=== PATIENT | female | born 1945 | race Caucasian/White ===

== ENCOUNTER 2022-10-18 06:05 | Emergency (ER) | payer OTHER, MEDICARE ==
[2022-10-18 06:49] LABS: Absolute Lymphocytes (CBC) 1.3 K/uL (0.7-4.9); Hematocrit 38.3 % (36.0-45.0); Lymphocytes % 20.5 % (15.3-44.8); MCV 96.5 fL (80-100); MPV 9.1 fL (7.6-11.3); RBC Red Blood Cell Count 3.97 M/uL (3.86-4.86)
[2022-10-18] MEDS ORDERED: KETOROLAC 30 MG/ML INJ ONE (06:53)
[2022-10-18] MEDS ORDERED: NA CHLORIDE 0.9% 1,000 ML ONE (06:53)
[2022-10-18] MEDS ORDERED: ONDANSETRON 4 MG/2 ML VIAL ONE (06:53)
[2022-10-18] MEDS ORDERED: MORPHINE 4 MG/ML SYR ONE (06:53)
[2022-10-18 07:06] LABS: Albumin 3.4 g/dL (3.4-5.0); Bilirubin Total 0.4 mg/dL (0.2-1.0); Potassium 3.9 mEq/L (3.5-5.1); Protein, Total 7.3 g/dL (6.4-8.2)
--- NOTE | 2022-10-18 07:40 | RAD REPORT ---
EXAM DESCRIPTION: CT - Abdomen Pelvis W Contrast - 10/18/2022 7:25 am CLINICAL HISTORY: Abdominal pain/right pelvis COMPARISON: none. TECHNIQUE: Computed axial tomography of the abdomen pelvis was obtained. 100 cc Isovue-300 was admin istered intravenously. Oral contrast was not requested which limits evaluation of bowel and appendix All CT scans are performed using dose optimization technique as appropriate and may include automated exposure control or mA/KV adjustment according to patient size. FINDINGS: Mild fatty infiltration. Small hepatic cysts. Postsurgical changes involve the stomach. The small pancreatic calcification. Pancreas otherwise normal size and density. Adrenal glands are unremarkable. Bilateral renal cysts. Small umbilical hernia. Probable appendectomy. Fibroid uterus. No inguinal hernia. 5 millimeter right lower lobe subpleural nodule probably benign IMPRESSION: Mild fatty infiltration Fibroid uterus 5 millimeter right lower lobe subpleural nodule probably benign. Follow up CT chest in 1 recommended
--- NOTE | 2022-10-18 07:41 | RAD REPORT ---
[facility] 7:07 am CLINICAL HISTORY: Right leg pain COMPARISON: None. FINDINGS: Right common femoral, superficial femoral, greater saphenous, popliteal and right posterio r tibial veins are compressible and demonstrate augmentation. Doppler demonstrates good flow. Grayscale, color and spectral analysis performed on all vessels IMPRESSION: No evidence of deep venous thrombosis involving the right lower extremity.
--- NOTE | 2022-10-18 07:45 | RAD REPORT ---
EXAM DESCRIPTION: US - Lower Extremity Artery Uni Ltd - 10/18/2022 7:07 am CLINICAL HISTORY: Leg pain COMPARISON: None FINDINGS: The right common femoral, proximal and mid superficial femoral, dorsalis pedis and right posterior ti bial arteries demonstrate triphasic waveforms The distal right superficial femoral and right popliteal arteries demonstrate biphasic waveforms No occlusion/high-grade stenosis seen Grayscale, color and spectral analysis performed on all vessels IMPRESSION: Mild right lower extremity arterial disease
[2022-10-18 08:47] LABS: Transitional Epithelial <5 /HPF (None Seen); Urine Bacteria None Seen /HPF (<20); Urine Bilirubin NEGATIVE (Negative); Urine Blood Negative (Negative); Urine Clarity Clear (Clear); Urine Color Light-Yellow (Yellow); Urine Glucose NEGATIVE (Negative); Urine Mucus Slight /HPF (None Seen); Urine Protein NEGATIVE (Negative); Urine RBC <5 /HPF (None Seen); Urine Urobilinogen Normal (Normal); Urine pH 5.5 (5.0-7.0)
[2022-10-18 08:50] LABS: Specific Gravity > 1.030 (1.005-1.030)
--- NOTE | 2022-10-18 09:06 | ER ---
Nurse's Notes [facility] Name: Radha Cristina Age: 77 yrs Sex: Female : 1945 Arrival Date: 10/18/2022 Time: 06:05 Bed 8 Private MD: Diagnosis: Pain in right leg Presentation: 10/18 06:29 Chief complaint: Patient states: I'm having a pain in my right groin and it is vc1 traveling down my leg. Coronavirus screen: Vaccine status: Patient reports being unvaccinated. At this time, the client does not indicate any symptoms associated with coronavirus-19. Ebola Screen: Patient negative for fever greater than or equal to 101.5 degrees Fahrenheit, and additional compatible Ebola Virus Disease symptoms Patient denies exposure to infectious person. Patient denies travel to an Ebola-affected area in the 21 days before illness onset. No symptoms or risks identified at this time. Initial Sepsis Screen: Does the patient meet any 2 criteria? No. Patient's initial sepsis screen is negative. Does the patient have a suspected source of infection? No. Patient's initial sepsis screen is negative. Risk Assessment: Do you want to hurt yourself or someone else? Patient reports no desire to harm self or others. Onset of symptoms is unknown. 06:29 Method Of Arrival: Ambulatory vc1 06:29 Acuity: SATYA 3 vc1 Triage Assessment: 06:31 General: Appears in no apparent distress. uncomfortable, obese, Behavior is calm, vc1 cooperative, appropriate for age. Pain: Complains of pain in right inner thigh Pain radiates to right leg Pain currently is 8 out of 10 on a pain scale. at worst was 10 out of 10 on a pain scale. Quality of pain is described as sharp. EENT: No deficits noted. No signs and/or symptoms were reported regarding the EENT system. Neuro: Level of Consciousness is awake, alert, obeys commands, Oriented to person, place, time, situation, Appropriate for age. Cardiovascular: No deficits noted. Respiratory: Airway is patent Respiratory effort is even, unlabored, Respiratory pattern is regular, symmetrical. GI: No deficits noted. : No deficits noted. Derm: No deficits noted. Musculoskeletal: Reports pain in right leg. Historical: - Allergies: :31 unknown antibiotic; vc1 - Home Meds: 06:31 None [Active]; vc1 - PMHx: 06:31 None; vc1 - PSHx: 06:31 None; vc1 - Immunization history:: Client reports having NOT received the Covid vaccine. - Social history:: Smoking status: Patient denies any tobacco usage or history of. - Family history:: not pertinent. Screenin:32 [facility] ED Fall Risk Assessment (Adult) History of falling in the last 3 months, vc1 including since admission No falls in past 3 months (0 pts) Confusion or Disorientation No (0 pts) Intoxicated or Sedated No (0 pts) Impaired Gait No (0 pts) Mobility Assist Device Used No (0 pt) Altered Elimination No (0 pt) Score/Fall Risk Level 0 - 2 = Low Risk Oriented to surroundings, Maintained a safe environment, Educated pt \T\ family on fall prevention, incl call for assistance when getting out of bed. Abuse screen: Denies threats or abuse. Nutritional screening: No deficits noted. Tuberculosis screening: No symptoms or risk factors identified. Assessment: 06:53 General: Appears uncomfortable, Behavior is calm, cooperative. Pain: Complains of pain kd3 in right leg and right inner thigh. Neuro: Level of Consciousness is awake, alert, obeys commands, Oriented to person, place, time, situation. Cardiovascular: Patient's skin is warm and dry. Pulses are palpable in right femoral artery, right posterior tibial artery and right dorsalis pedis artery. Vital Signs: 06:29 BP 193 / 92; Pulse 82; Resp 20; Temp 98.8; Pulse Ox 96% ; Weight 120.66 kg; Height 5 vc1 ft. 4 in. ; Pain 8/10; 06:55 BP 180 / 88; Pulse 66; Resp 16; Pulse Ox 95% on R/A; kd3 08:15 BP 162 / 88; Pulse 68; Pulse Ox 96% on R/A; ap3 06:29 Body Mass Index 45.66 (120.66 kg, 162.56 cm) vc1 06:29 Pain Scale: Adult vc1 ED Course: 06:09 Patient arrived in ED. jj6 06:26 Cullen Miller MD is Attending Physician. sp4 06:29 Mary Hilton RN is Primary Nurse. kd3 06:31 Triage completed. vc1 06:32 Arm band placed on right wrist. vc1 06:33 Patient has correct armband on for positive identification. Placed in gown. Bed in low vc1 position. Call light in reach. Pulse ox on. NIBP on. 06:41 Inserted saline lock: 20 gauge in right antecubital area, using aseptic technique. kd3 Blood collected. 06:44 CBC with Diff Sent. kd3 06:44 CMP Sent. kd3 06:44 Lipase Sent. kd3 07:05 Attending Physician role handed off by Cullen Miller MD rt 07:05 Keshawn Auguste MD is Attending Physician. rt 07:09 Extremity Venous Uni Ltd US In Process Unspecified. EDMS 07:09 Lower Extremity Artery Uni Ltd US In Process Unspecified. EDMS 07:27 CT Abd/Pelvis - IV Contrast Only In Process Unspecified. EDMS 09:11 Provided Education on: discharge instructions. ap3 09:11 No provider procedures requiring assistance completed. IV discontinued, intact, ap3 bleeding controlled, No redness/swelling at site. Pressure dressing applied. Administered Medications: 07:06 Drug: NS 0.9% IV 1000 ml Route: IV; Rate: 1 bolus; Site: right antecubital; kd3 09:11 Follow up: IV Status: Completed infusion ap3 07:06 Drug: TORadol - Ketorolac IVP 15 mg Route: IVP; Site: right antecubital; kd3 09:12 Follow up: Response: No adverse reaction; Pain is decreased ap3 07:06 Drug: Ondansetron IVP 4 mg Route: IVP; Site: right antecubital; kd3 09:12 Follow up: Response: No adverse reaction ap3 07:06 Drug: morphine IVP or IV 4 mg Route: IVP; Infused Over: 4 mins; Site: right antecubital;kd3 09:12 Follow up: Response: No adverse reaction; Pain is decreased ap3 Medication: 06:33 VIS not applicable for this client. vc1 Outcome: 09:05 Discharge ordered by . rt 09:11 Discharged to home ambulatory, with family. ap3 09:11 Condition: good 09:11 Discharge instructions given to patient, Instructed on discharge instructions, follow up and referral plans. medication usage, Demonstrated understanding of instructions, follow-up care, medications, Prescriptions given X 1. 09:12 Patient left the ED. ap3 Signatures: Dispatcher [employer] EDEllen Lewis RN RN ap3 Dalia Cardenas jj6 Mary Hilton RN RN kd3 Corrine Khan RN RN vc1 Keshawn Auguste MD MD rt Cullen Miller MD MD sp4 Corrections: (The following items were deleted from the chart) 06:31 06:31 Allergies: No Known Allergies; vc1 vc1
--- NOTE | 2022-10-18 09:06 | EDPHYS ---
Physician Documentation [facility] Name: Radha Cristina Age: 77 yrs Sex: Female : 1945 Arrival Date: 10/18/2022 Time: 06:05 Bed 8 Private MD: ED Physician Keshawn Auguste HPI: 10/18 06:26 This 77 yrs old Female presents to ER via Unassigned with complaints of Leg sp4 Pain. 06:54 Very pleasant 77-year-old female presents with right lower extremity pain that starts sp4 at the right groin and travels down the right leg spreading outward and laterally into the right thigh. Patient states that pain started last night and it was impossible for her to sleep. Pain is actually worse when patient is laying down. Patient is ambulatory on arrival. Denies any pain in the foot, denies any discoloration of the lower extremity, denies any injury or trauma. Historical: - Allergies: 06:31 unknown antibiotic; vc1 - Home Meds: 06:31 None [Active]; vc1 - PMHx: 06:31 None; vc1 - PSHx: 06:31 None; vc1 - Immunization history:: Client reports having NOT received the Covid vaccine. - Social history:: Smoking status: Patient denies any tobacco usage or history of. - Family history:: not pertinent. ROS: 06:54 Constitutional: Negative for fever, chills, and weight loss, MS/Extremity: Negative for sp4 injury and deformity, positive right lower extremity pain, positive for right groin pain positive for right thigh pain. Exam: 06:54 Constitutional: This is a well developed, well nourished patient who is awake, alert, sp4 and in no acute distress. Head/Face: Normocephalic, atraumatic. Eyes: Pupils equal round and reactive to light, extra-ocular motions intact. Lids and lashes normal. Conjunctiva and sclera are not injected. Cornea within normal limits. Periorbital areas with no swelling, redness, or edema. ENT: Nares patent. No nasal discharge, no septal abnormalities noted. Tympanic membranes are normal and external auditory canals are clear. Oropharynx with no redness, swelling, or masses, exudates, or evidence of obstruction, uvula midline. Mucous membranes moist. Neck: Trachea midline, no thyromegaly or masses palpated, and no cervical lymphadenopathy. Supple, full range of motion without nuchal rigidity, or vertebral point tenderness. Chest/axilla: Normal chest wall appearance and motion. Nontender with no deformity. No lesions are appreciated. Cardiovascular: Regular rate and rhythm with a normal S1 and S2. No gallops, murmurs, or rubs. Normal PMI, no JVD. No pulse deficits. Respiratory: Lungs have equal breath sounds bilaterally, clear to auscultation and percussion. No rales, rhonchi or wheezes noted. No increased work of breathing, no retractions or nasal flaring. Abdomen/GI: Soft, non-tender, with normal bowel sounds. No distension or tympany. No guarding or rebound. No evidence of tenderness throughout. Back: No spinal tenderness. No costovertebral tenderness. Female : Right groin exam there is normal arterial pulse, there is no sign of inguinal hernia, no sign of lymphadenopathy, no lumps, no discoloration, no rash. Skin: Warm, dry with normal turgor. Normal color with no rashes, no lesions, and no evidence of cellulitis. MS/ Extremity: Pulses equal, no cyanosis. Neurovascular intact. Full, normal range of motion. Normal gait and station Neuro: Awake and alert, GCS 15, oriented to person, place, time, and situation. Cranial nerves II-XII grossly intact. Motor strength 5/5 in all extremities. Sensory grossly intact. Psych: Awake, alert, with orientation to person, place and time. Behavior, mood, and affect are within normal limits Vital Signs: 06:29 BP 193 / 92; Pulse 82; Resp 20; Temp 98.8; Pulse Ox 96% ; Weight 120.66 kg; Height 5 vc1 ft. 4 in. ; Pain 8/10; 06:55 BP 180 / 88; Pulse 66; Resp 16; Pulse Ox 95% on R/A; kd3 08:15 BP 162 / 88; Pulse 68; Pulse Ox 96% on R/A; ap3 06:29 Body Mass Index 45.66 (120.66 kg, 162.56 cm) vc1 06:29 Pain Scale: Adult vc1 MDM: 06:37 Patient medically screened. sp4 06:54 Differential diagnosis: dislocation, closed fracture, contusion, abrasion, tendonitis. sp4 Data reviewed: vital signs, nurses notes, lab test result(s), radiologic studies, CT scan, doppler. Consideration of Admission/Observation Escalation of care including admission/observation considered. ED course: Patient has unusual groin pain without any significant findings on examination.. We will resort to imaging to rule out arterial abnormalities, such as aneurysms, CT abdomen pelvis will be done to look at the right lower pelvic area to assess for perhaps an aneurysm or other unusual problem that can create pain in the right groin. Will ask daytime provider to follow-up on the CT and ultrasound report and provide further disposition. 07:06 Transition of care: After a detail discussion of the patient's case, care is sp4 transferred to Keshawn Auguste MD. 09:06 ED course: Assumed care at shift change. I discussed at length the results of the rt ultrasound and CT scans with the patient. The pulmonary nodule is already known to the patient has been surveilled for many years and the fibroids are a known issue as well. No evidence of an acute arterial occlusion, DVT. No evidence of infection, labs are benign. Is stable for outpatient care, patient structured to follow-up with primary care.. 10/18 06:36 Order name: CBC with Diff; Complete Time: 07:38 sp4 10/18 06:36 Order name: CMP; Complete Time: 07:38 sp4 10/18 06:36 Order name: Lipase; Complete Time: 07:38 sp4 10/18 06:36 Order name: Urinalysis w/ reflexes; Complete Time: 08:51 sp4 10/18 06:36 Order name: CT Abd/Pelvis - IV Contrast Only; Complete Time: 07:50 sp4 10/18 06:37 Order name: Extremity Venous Uni Ltd US; Complete Time: 07:50 sp4 10/18 06:37 Order name: Lower Extremity Artery Uni Ltd US; Complete Time: 07:50 sp4 10/18 06:36 Order name: IV Saline Lock; Complete Time: 06:41 sp4 10/18 06:36 Order name: Labs collected and sent; Complete Time: 06:41 sp4 Administered Medications: 07:06 Drug: NS 0.9% IV 1000 ml Route: IV; Rate: 1 bolus; Site: right antecubital; kd3 09:11 Follow up: IV Status: Completed infusion ap3 07:06 Drug: TORadol - Ketorolac IVP 15 mg Route: IVP; Site: right antecubital; kd3 09:12 Follow up: Response: No adverse reaction; Pain is decreased ap3 07:06 Drug: Ondansetron IVP 4 mg Route: IVP; Site: right antecubital; kd3 09:12 Follow up: Response: No adverse reaction ap3 07:06 Drug: morphine IVP or IV 4 mg Route: IVP; Infused Over: 4 mins; Site: right antecubital;kd3 09:12 Follow up: Response: No adverse reaction; Pain is decreased ap3 Disposition Summary: 10/18/22 09:05 Discharge Ordered Location: Home rt Problem: new rt Symptoms: are unchanged rt Condition: Stable rt Diagnosis - Pain in right leg rt Followup: rt - With: Private Physician - When: 2 - 3 days - Reason: Discharge Instructions: - Discharge Summary Sheet rt - Musculoskeletal Pain rt Forms: - Medication Reconciliation Form rt - Thank You Letter rt - Antibiotic Education rt - Prescription Opioid Use rt - Patient Portal Instructions rt Prescriptions: - Tramadol 50 mg Oral Tablet - take 1 tablet by ORAL route every 8 hours as needed; 18 tablet; Refills: 0, rt Product Selection Permitted Signatures: Dispatcher [employer] Mary Ramirez RN RN kd3 Corrine Khan RN RN vc1 Keshawn Auguste MD MD rt Cullen Miller MD MD sp4 Ellen Daly RN ap3 Corrections: (The following items were deleted from the chart) 06:31 06:31 Allergies: No Known Allergies; vc1 vc1
[2022-10-18 09:21] VITALS: TEMP 98.8
[2022-10-18 09:37] VITALS: BP 162/88; O2SAT 96
== END 2022-10-18 09:12 | disposition home or self-care (01) ==
LOC: ER 06:05
DX: M79.604 Pain in right leg (principal)
CPT/HCPCS: 96361; 85025; 81001; 36415; 83690; 80053; 74177; 93926; 93971; 96375; 96374; 99284; Q9967; J2405; J7030

== ENCOUNTER 2023-07-22 14:23 | Emergency (ER) | payer OTHER ==
[2023-07-22] MEDS ORDERED: IBUPROFEN 400 MG TAB ONE (15:57)
[2023-07-22] MEDS ORDERED: dexAMETHasone 4 MG TAB ONE (15:57)
[2023-07-22] MEDS ORDERED: HYDROCODONE/APAP 7.5/325 MG TAB ONE (15:57)
--- NOTE | 2023-07-22 16:03 | RAD REPORT ---
EXAM DESCRIPTION: RAD - Hip Left 2 View - 07/22/2023 3:58 pm CLINICAL HISTORY: Pain COMPARISON: No comparisons FINDINGS/IMPRESSION: Left acetabular degenerative changes which are mild. No acute left hip fracture . No dislocation.
--- NOTE | 2023-07-22 16:04 | RAD REPORT ---
EXAM DESCRIPTION: RAD - Knee Left 3 View - 07/22/2023 3:58 pm CLINICAL HISTORY: Pain COMPARISON: No comparisons FINDINGS/IMPRESSION: Status post left knee arthroplasty. No hardware complications or acute fracture s. Alignment is normal. No acute soft tissue abnormality identified.
--- NOTE | 2023-07-22 16:23 | RAD REPORT ---
EXAM DESCRIPTION: US - Extremity Venous Uni Ltd - 07/22/2023 4:18 pm CLINICAL HISTORY: Swelling COMPARISON: None. TECHNIQUE: Real-time sonographic evaluation of the left lower extremity deep venous system was perfo rmed. FINDINGS: Normal compressibility, flow augmentation, phasic flow and spontaneous flow is identified in the left lower extremity deep venous system. No intraluminal filling defects seen. IMPRESSION: No DVT in the left lower extremity.
--- NOTE | 2023-07-22 17:59 | RAD REPORT ---
EXAM DESCRIPTION: US - Lower Extremity Artery Uni Ltd - 07/22/2023 5:48 pm CLINICAL HISTORY: Neck pain COMPARISON: Ultrasound 10/18/2022 FINDINGS: Color Doppler, grayscale, and spectral analysis was performed. The left common femoral, superficial femoral and popliteal arteries bilaterally demonstrate triphasic waveforms The posterior tibial and dorsalis pedis arteries demonstrate biphasic waveforms. IMPRESSION: No flow limiting arterial stenosis identified in the left lower extremity. Multiphasic w aveforms are present throughout.
--- NOTE | 2023-07-22 18:06 | ER ---
Nurse's Notes [facility] Name: Radha Cristina Age: 78 yrs Sex: Female : 1945 Arrival Date: 07/22/2023 Time: 14:23 Bed 19 Private MD: Diagnosis: Pain in left leg Presentation: 07/21 14:39 Chief complaint: Patient states: left leg pain and left hip pain "for a few weeks". aa5 14:39 Coronavirus screen: At this time, the client does not indicate any symptoms associated aa5 with coronavirus-19. Ebola Screen: Patient denies travel to an Ebola-affected area in the 21 days before illness onset. Initial Sepsis Screen: Does the patient meet any 2 criteria? No. Patient's initial sepsis screen is negative. Does the patient have a suspected source of infection? No. Patient's initial sepsis screen is negative. Risk Assessment: Do you want to hurt yourself or someone else? Patient reports no desire to harm self or others. Onset of symptoms was June 2023. 14:39 Acuity: SATYA 3 aa5 14:39 Method Of Arrival: Ambulatory aa5 Historical: - Allergies: 14:57 Diltiazem; aa5 14:57 Benadryl; aa5 14:57 Lisinopril; aa5 18:17 unknown antibiotic; db - Immunization history:: Adult Immunizations unknown. - Infectious Disease History:: Denies. - Social history:: Smoking status: Patient denies any tobacco usage or history of. Screenin:02 [facility] ED Fall Risk Assessment (Adult) History of falling in the last 3 months, db including since admission No falls in past 3 months (0 pts) Confusion or Disorientation No (0 pts) Intoxicated or Sedated No (0 pts) Impaired Gait No (0 pts) Mobility Assist Device Used No (0 pt) Altered Elimination No (0 pt) Score/Fall Risk Level 0 - 2 = Low Risk Oriented to surroundings, Maintained a safe environment. Abuse screen: Denies threats or abuse. Denies injuries from another. Nutritional screening: No deficits noted. Tuberculosis screening: No symptoms or risk factors identified. Assessment: 15:45 Reassessment: Patient appears in no apparent distress at this time. Patient and/or db family updated on plan of care and expected duration. Pain level reassessed. Patient is alert, oriented x 3, equal unlabored respirations, skin warm/dry/pink. LEFT LEG PAIN RADIATES UP INTO HIP AND BACK OF CALF. General: Appears in no apparent distress. comfortable, Behavior is calm, cooperative. Pain: Complains of pain in left leg. Neuro: Level of Consciousness is awake, alert, obeys commands, Oriented to person, place, time, situation. Respiratory: Airway is patent Respiratory effort is even, unlabored, Respiratory pattern is regular, symmetrical. 16:01 Reassessment: ULTRASOUND AT PT BEDSIDE. db 16:27 Reassessment: Patient appears in no apparent distress at this time. Patient and/or db family updated on plan of care and expected duration. Pain level reassessed. Patient is alert, oriented x 3, equal unlabored respirations, skin warm/dry/pink. 18:15 Reassessment: Patient appears in no apparent distress at this time. Patient and/or db family updated on plan of care and expected duration. Pain level reassessed. Patient is alert, oriented x 3, equal unlabored respirations, skin warm/dry/pink. Vital Signs: 14:39 BP 160 / 106; Pulse 69; Resp 16 S; Temp 97.5(TE); Pulse Ox 96% on R/A; Weight 113.4 kg aa5 (R); Height 5 ft. 4 in. (R); 15:32 BP 153 / 90; Pulse 76; Resp 18; Pulse Ox 96% ; db 16:00 BP 144 / 60; Pulse 67; Resp 18; Pulse Ox 96% on R/A; db 18:05 BP 143 / 82; Pulse 72; Resp 16; Temp 97.6; Pulse Ox 99% ; db 14:39 Body Mass Index 42.91 (113.40 kg, 162.56 cm) aa5 ED Course: 14:25 Patient arrived in ED. mr 14:27 Gordo Woodard PA is PHCP. cp 14:27 Herrera Foster MD is Attending Physician. cp 14:39 Arm band placed on Patient placed in an exam room, on a stretcher. aa5 14:58 Lavern Wilson, EMILY is Primary Nurse. db 14:59 Triage completed. aa5 15:48 Patient has correct armband on for positive identification. Placed in gown. Bed in low db position. Call light in reach. Side rails up X 1. Pulse ox on. NIBP on. Warm blanket given. Pillow given. 16:00 Hip Left 2 View In Process Unspecified. EDMS 16:00 Knee Left 3 View In Process Unspecified. EDMS 16:19 Extremity Venous Uni Ltd In Process Unspecified. EDMS 17:50 Lower Extremity Artery Uni Ltd In Process Unspecified. EDMS 18:15 Provided Education on: DISCHARGE. db 18:15 No provider procedures requiring assistance completed. Patient did not have IV access db during this emergency room visit. Administered Medications: 15:58 Drug: Hydrocodone-Acetaminophen PO (7.5 mg-325 mg) 1 tabs PO once; RASS on ADMIN: db Combtv4, Very Agttd3, Agttd2, Rstlss1, AlertClm0, Drwsy-1, Lt Sdtn-2, Mod Sdtn-3, Dp Sdtn-4, UnArsble-5 Route: PO; 18:18 Follow up: Response: No adverse reaction db 15:58 Drug: Ibuprofen PO 800 mg PO once Route: PO; db 18:18 Follow up: Response: No adverse reaction db 15:58 Drug: Dexamethasone PO 10 mg PO once Route: PO; db 18:18 Follow up: Response: No adverse reaction db Medication: 18:15 VIS not applicable for this client. db Outcome: 18:05 Discharge ordered by . mckenzie 18:15 Discharged to home ambulatory, with family, db 18:15 Condition: stable 18:15 Discharge instructions given to patient, Instructed on discharge instructions, follow up and referral plans. Prescriptions given X 3, 18:18 Patient left the ED. db Signatures: Dispatcher [employer] EDNC MajanoLisha cardoza, Reg Reg mr Kalani Hinojosa, RN RN aa5 Gordo Woodard PA PA cp Benton, Danielle, RN RN db
--- NOTE | 2023-07-22 18:06 | EDPHYS ---
Physician Documentation [facility] Name: Radha Cristina Age: 78 yrs Sex: Female : 1945 Arrival Date: 07/22/2023 Time: 14:23 Bed 19 Private MD: ED Physician Herrera Foster HPI: 07/21 15:00 This 78 yrs old Female presents to ER via Ambulatory with complaints of Leg Pain. cp 15:00 The patient presents with pain. cp 15:00 The complaints affect the left leg. Context: resulted from an unknown cause, the cp patient can fully bear weight, the patient is able to ambulate, with mild difficulty, history of left knee replacement surgery. Onset: The symptoms/episode began/occurred for several weeks, worse over past several days. Modifying factors: the symptoms are aggravated by weight bearing. 15:00 Associated signs and symptoms: Pertinent positives: calf tenderness, Pertinent cp negatives fever, warmth, injury. Severity of symptoms: in the emergency department the symptoms are unchanged, despite home interventions. Historical: - Allergies: 14:57 Diltiazem; aa5 14:57 Benadryl; aa5 14:57 Lisinopril; aa5 18:17 unknown antibiotic; db - Immunization history:: Adult Immunizations unknown. - Infectious Disease History:: Denies. - Social history:: Smoking status: Patient denies any tobacco usage or history of. ROS: 15:05 MS/extremity: Positive for pain, of the left leg, Negative for injury or acute cp deformity, decreased range of motion, 15:05 Constitutional: Negative for body aches, chills, fever, poor PO intake, cp 15:05 Cardiovascular: Negative for chest pain, edema, palpitations, 15:05 Respiratory: Negative for cough, shortness of breath, wheezing, 15:05 Abdomen/GI: Negative for abdominal pain, nausea, vomiting, and diarrhea, 15:05 Back: Negative for injury or acute deformity, decreased range of motion, pain at rest, pain with movement, 15:05 : Negative for urinary symptoms, hematuria, flank pain, burning with urination, 15:05 Neuro: Negative for altered mental status, dizziness, numbness, tingling, weakness, 15:05 All other systems are negative, Exam: 15:10 Constitutional: The patient appears in no acute distress, alert, awake, cp non-diaphoretic, non-toxic, well developed, well nourished, obese, 15:10 Head/Face: Normocephalic, atraumatic. cp 15:10 Eyes: Periorbital structures: appear normal, Conjunctiva: normal, no exudate, no injection, Sclera: no appreciated abnormality, Lids and lashes: appear normal, bilaterally, 15:10 ENT: External ear(s): are unremarkable, Nose: is normal, Mouth: Lips: moist, Oral mucosa: pink and intact, moist, Posterior pharynx: is normal, airway is patent, no erythema, no exudate, 15:10 Chest/axilla: Inspection: normal, 15:10 Cardiovascular: Rate: normal, Rhythm: regular, 15:10 Respiratory: the patient does not display signs of respiratory distress, Respirations: normal, no use of accessory muscles, no retractions, labored breathing, is not present, Breath sounds: are clear throughout, no decreased breath sounds, no stridor, no wheezing, 15:10 Abdomen/GI: Inspection: abdomen appears normal, Palpation: abdomen is soft and non-tender, in all quadrants, 15:10 Back: pain, is absent, ROM is normal, 15:10 Musculoskeletal/extremity: Extremities: noted in the left leg: ROM: full active range of motion, in the left leg, Pulses: noted to be 2+ in the left dorsalis pedis artery, the left leg Sensation intact. Joints: the left hip displays painful range of motion, tenderness, the left knee displays painful range of motion, tenderness, Weight bearing: able to fully bear weight, 15:10 Skin: cellulitis, is not appreciated, no rash present. Vital Signs: 14:39 BP 160 / 106; Pulse 69; Resp 16 S; Temp 97.5(TE); Pulse Ox 96% on R/A; Weight 113.4 kg aa5 (R); Height 5 ft. 4 in. (R); 15:32 BP 153 / 90; Pulse 76; Resp 18; Pulse Ox 96% ; db 16:00 BP 144 / 60; Pulse 67; Resp 18; Pulse Ox 96% on R/A; db 18:05 BP 143 / 82; Pulse 72; Resp 16; Temp 97.6; Pulse Ox 99% ; db 14:39 Body Mass Index 42.91 (113.40 kg, 162.56 cm) aa5 MDM: 14:42 Patient medically screened. cp 16:00 Differential diagnosis: DVT, cellulitis, musculoskeletal. cp 18:05 Data reviewed: vital signs, nurses notes, radiologic studies, plain films, ultrasound, cp and as a result, I will discharge patient. 07/21 15:43 Order name: Hip Left 2 View EDAR 07/21 15:43 Order name: Knee Left 3 View EDAR 07/21 15:44 Order name: Extremity Venous Uni Ltd EDAR 07/21 16:03 Order name: RAD; Complete Time: 17:22 EDMS 07/21 16:04 Order name: RAD; Complete Time: 17:22 EDMS 07/21 16:25 Order name: US; Complete Time: 17:22 EDMS 07/21 17:34 Order name: Lower Extremity Artery Uni Ltd EDAR 07/21 18:00 Order name: US EDAR 07/21 14:42 Order name: Misc. Order: change to gown; Complete Time: 15:47 cp Administered Medications: 15:58 Drug: Hydrocodone-Acetaminophen PO (7.5 mg-325 mg) 1 tabs PO once; RASS on ADMIN: db Combtv4, Very Agttd3, Agttd2, Rstlss1, AlertClm0, Drwsy-1, Lt Sdtn-2, Mod Sdtn-3, Dp Sdtn-4, UnArsble-5 Route: PO; 18:18 Follow up: Response: No adverse reaction db 15:58 Drug: Ibuprofen PO 800 mg PO once Route: PO; db 18:18 Follow up: Response: No adverse reaction db 15:58 Drug: Dexamethasone PO 10 mg PO once Route: PO; db 18:18 Follow up: Response: No adverse reaction db Disposition Summary: 07/22/23 18:05 Discharge Ordered Notes: Location: Home cp Problem: new cp Symptoms: have improved cp Condition: Stable cp Diagnosis - Pain in left leg cp Followup: cp - With: Private Physician - When: 2 - 3 days - Reason: Recheck today's complaints Discharge Instructions: - Discharge Summary Sheet cp - Musculoskeletal Pain cp - How to Use Cold Therapy cp - Heat Therapy cp Forms: - Medication Reconciliation Form cp - Antibiotic Education cp - Prescription Opioid Use cp - Patient Portal Instructions cp - Leadership Thank You Letter cp Prescriptions: - Mobic 7.5 mg Oral Tablet - take 1 tablet ORAL route once daily take with food; 20 tablet; Refills: 0, cp Product Selection Permitted - Medrol (Dangelo) 4 mg Oral Tablets, Dose Pack - take 1 tablet ORAL route as directed - follow package instructions; 1 packet; cp Refills: 0, Product Selection Permitted - methocarbamol 750 mg Oral tablet - take 1 tablet ORAL route 3 times per day; 30 tablet; Refills: 0, Product cp Selection Permitted Signatures: Dispatcher [employer] Kalani Jamison, RN RN aa5 Gordo Woodard PA PA cp Lavern Wilson RN RN db Corrections: (The following items were deleted from the chart) 07/22 17:29 17:26 MS/extremity: Positive for pain, of the left leg, cp cp
[2023-07-23 14:52] VITALS: BP 143/82; TEMP 97.6; O2SAT 99
== END 2023-07-22 18:18 | disposition home or self-care (01) ==
LOC: ER 14:23
DX: M79.605 Pain in left leg (principal); Z88.1 Allergy status to other antibiotic agents; Z88.8 Allergy status to other drugs, medicaments and biological substances
CPT/HCPCS: 73502; 73562; 93926; 93971; 99284; J8540

== ENCOUNTER 2024-12-19 14:43 | Observation (INO) | payer OTHER ==
--- NOTE | 2024-12-19 15:09 | RAD REPORT ---
EXAM: CT Ct Stroke Brain Wo Cont HISTORY: STROKE ALERT COMPARISON: None TECHNIQUE: Multiple contiguous axial images were obtained for a CT of the brain without contrast. Sag ittal and coronal reformats were performed. One or more of the following dose reduction techniques were used: Automated exposure control, adjus tment of the mA and kV according to patient size, and iterative reconstruction. Unless otherwise specified, incidental findings do not require dedicated imaging follow-up. FINDINGS: No evidence of hydrocephalus, intracranial hemorrhage, or extra-axial fluid collection. Patchy hypoattenuation in the right centrum semiovale anteriorly. These are nonspecific and could re late to chronic small vessel ischemic changes.. No evidence of an acute territorial infarct. The calvarium is intact. The visualized paranasal sinuses and mastoid air cells are essentially clear . IMPRESSION: No evidence of acute intracranial abnormality. Chronic findings as above. If there is concern for acu te ischemia, additional evaluation by stroke protocol MRI would provide improved assessment. THIS REPORT CONTAINS FINDINGS THAT MAY BE CRITICAL TO PATIENT CARE. The findings were verbally commun icated via telephone to Gavin Benton on 12/19/2024 3:06 PM.
[2024-12-19 15:25] LABS: Absolute Lymphocytes (CBC) 1.5 K/uL (0.7-4.9); Hematocrit 42.7 % (36.0-45.0); Hemoglobin 14.0 g/dL (12.0-15.0); MCH 31.4 pg (27.0-35.0); MCHC 32.8 g/dL (32.0-36.0); MCV 95.5 fL (80-100); MPV 9.2 fL (7.6-11.3); Nucleated RBC Absolute Count 0.0 (0-0); Nucleated Red Blood Cells % 0.0 % (0-0); RBC Red Blood Cell Count 4.48 M/uL (3.86-4.86); White Blood Count 6.30 thou/uL (4.3-10.9)
[2024-12-19 15:34] LABS: PT Prothrombin Time 14.7 SECONDS (10-13.0); PTT, Activated Partial Thromb 33.3 SECONDS (27.2-37.4); Protime INR 1.31
[2024-12-19 15:44] LABS: Anion Gap 7.2 mEq/L (5.0-15.0); BUN Blood Urea Nitrogen 19.0 mg/dL (7-18); Glucose Level 134.0 mg/dL (74-106); Potassium 4.2 mEq/L (3.5-5.1); Troponin High Sensitivity 4.5 pg/mL (<58.9)
--- NOTE | 2024-12-19 16:07 | RAD REPORT ---
EXAMINATION: CTA HEAD CLINICAL INDICATION: Female, 79 years old. left facial and left hand numbnes TECHNIQUE: Axial CT images were obtained through the head after intravenous contrast utilizing angiog raphic protocol with 3D post-processing (maximum intensity projection images, volume rendered images and/or shaded surface rendered images). One or more of the following dose reduction technique s were used: Automated exposure control, adjustment of the mA and/or kV according to patient size, and/or iterative reconstruction. Unless otherwise specified, incidental findings do not require dedic ated imaging follow-up. COMPARISON: No prior exam. FINDINGS: ICA: The petrous, cavernous, and supraclinoid segments of the bilateral internal carotid arteries are normal. HOWARD: Anterior cerebral arteries are normal bilaterally. The anterior communicating artery is patent. MCA: Middle cerebral arteries are normal bilaterally. ADOPTION SOCIAL WORKER: Posterior cerebral arteries are normal bilaterally. Vertebrobasilar: The vertebral arteries are patent. The basilar artery is normal in appearance. 3D images confirm these findings. IMPRESSION: No large vessel occlusion or hemodynamically significant stenosis.
--- NOTE | 2024-12-19 16:13 | RAD REPORT ---
EXAMINATION: CT Neck Angio CLINICAL INDICATION: Female, 79 years old. [facility] left facial and left hand numbnes Bed Name: [id number] TECHNIQUE: Axial CT images were obtained from the aortic arch to the skull base after intravenous con trast utilizing angiographic protocol. Multiplanar reformats, as well as 3D post-processing (maximum intensity projection images, volume rendered images and/or shaded surface rendered images) w ere generated and reviewed. One or more of the following dose reduction techniques were used: Automated exposure control, adjustment of the mA and/or kV according to patient size, and/or iterativ e reconstruction. Unless otherwise specified, incidental findings do not require dedicated imaging follow-up. COMPARISON: No prior exam. FINDINGS: AORTA: The imaged aortic arch is normal. Normal three-vessel configuration of the arch. CCA: No artifact The common carotid arteries are patent and normal in caliber. ICA/ECA: Bilateral internal and external carotid arteries are patent. There is no significant interna l carotid artery stenosis. VERTEBRAL: The cervical vertebral arteries are patent to the skull base. Vertebral arteries are codom inant. SOFT TISSUE: No significant neck soft tissue abnormalities. The visualized lung apices are clear. 3D images confirm these findings. IMPRESSION: No significant flow abnormality of the neck vessels is identified. NASCET criteria used to quantify ICA stenosis, with the following grading scheme: Mild 0-49% stenosis Moderate 50-69% stenosis Severe 70-99% stenosis Reference: [place] Symptomatic Carotid Endarterectomy Trial Collaborators; Maritza MAGANA, Amanda CUMMINGS, Nadya RB, et al. Beneficial effect of carotid endarterectomy in symptomatic patients with high-grade carotid stenosis. N Engl J Med. 1990 15;325(7):445-53.
--- NOTE | 2024-12-19 16:14 | RAD REPORT ---
EXAMINATION: ONE VIEW CHEST XR CLINICAL INDICATION: Female, 79 years old.,stroke aler TECHNIQUE: Frontal chest projection is submitted. Examination is limited by patient positioning and t echnique. COMPARISON: 10/15/2024 FINDINGS: The lungs are grossly clear apart from mild central congestive changes, stable, although suboptimal i nspiratory effort somewhat limits evaluation. No pneumothorax or sizable effusion. The heart is normal in size. Mediastinal contours are unremarkable. IMPRESSION: Stable mild central congestive changes. No other acute intrathoracic abnormalities.
--- NOTE | 2024-12-19 16:31 | EDPHYS ---
Physician Documentation [facility] Name: Radha Cristina Age: 79 yrs Sex: Female : 1945 Arrival Date: 12/19/2024 Time: 14:43 Bed 14 Private MD: ED Physician Gavin Benton HPI: 12/19 14:55 This 79 yrs old Female presents to ER via Ambulatory with complaints of left facial and ms3 left hand numbness. 14:55 79-year-old female with past medical history of hypertension, atrial fibrillation, ms3 hyperlipidemia, SVT presents to the emergency department for left mouth numbness, and left hand numbness. Patient states symptoms began 40 minutes prior to arrival. Patient states symptoms have resolved on arrival to the emergency department. Patient notes on December 12 she was having difficulty talking with a thick tongue. 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 Historical: - Allergies: 14:51 Benadryl; unable to urinate; dd2 14:51 Diltiazem; dd2 14:51 Lisinopril; dd2 14:51 unknown antibiotic; dd2 - PMHx: 14:51 Atrial fibrillation; Hypercholesterolemia; SVT; dd2 14:52 Hypertensive disorder; dd2 - PSHx: 14:53 Appendectomy; dd2 - Immunization history:: Adult Immunizations up to date. - Infectious Disease History:: Denies. - Social history:: Smoking status: Patient denies any tobacco usage or history of. ROS: 14:55 Constitutional: Negative for fever, and chills. Cardiovascular: Negative for chest ms3 pain, and palpitations. Respiratory: Negative for shortness of breath, cough, wheezing, and pleuritic chest pain, Abdomen/GI: Negative for abdominal pain, nausea, vomiting, diarrhea, and constipation, MS/Extremity: Negative for injury and deformity, Skin: Negative for injury, rash, and discoloration, 14:55 Neuro: Positive for numbness, Exam: 14:55 Constitutional: This is a well developed, well nourished patient who is awake, alert, ms3 and in no acute distress. Neck: Trachea midline, no cervical lymphadenopathy. Supple, full range of motion without nuchal rigidity, or vertebral point tenderness. No Meningismus. Chest/axilla: Normal chest wall appearance and motion. Nontender with no deformity. Cardiovascular: Regular rate and rhythm with a normal S1 and S2. No gallops, murmurs, or rubs. Normal PMI, no JVD. No pulse deficits. Respiratory: Lungs have equal breath sounds bilaterally, clear to auscultation and percussion. No rales, rhonchi or wheezes noted. No increased work of breathing, no retractions or nasal flaring. Abdomen/GI: Soft, non-tender, with normal bowel sounds. No distension or tympany. No guarding or rebound. No evidence of tenderness throughout. Skin: Warm, dry with normal turgor. Normal color with no rashes, no lesions, and no evidence of cellulitis. MS/ Extremity: Pulses equal, no cyanosis. Neurovascular intact. Full, normal range of motion. 15:38 ECG was reviewed by the Attending Physician. ms3 17:03 Radiologist reports: Negative acute ms3 Vital Signs: 15:10 BP 161 / 84; Pulse 55; Resp 18; Temp 98; Pulse Ox 100% ; Weight 117.93 kg (M); Height 5 mb9 ft. 4 in. ; Pain 0/10; 15:40 BP 166 / 73; Pulse 55; Resp 18; Pulse Ox 100% ; mb9 16:10 BP 171 / 71; Pulse 54; Resp 18; Pulse Ox 100% on R/A; mb9 17:40 BP 173 / 84; Pulse 54; Resp 18; Pulse Ox 98% on R/A; mb9 19:01 BP 155 / 99; Pulse 52; Resp 18; Pulse Ox 100% on R/A; mb9 15:10 Body Mass Index 44.63 (117.93 kg, 162.56 cm) mb9 15:10 Pain Scale: Adult mb9 NIH Stroke Scale Scores: 14:55 NIHSS Score: 0 ms3 15:10 NIHSS Score: 0 mb9 MDM: 14:53 Medical Screening Exam initiated ms3 17:00 Differential diagnosis: CVA, TIA, metabolic disorder. TNKase (Tenecteplase) Screening: ms3 Contraindications: Rapidly improving condition or minor deficit: Yes. Data reviewed: vital signs, nurses notes, lab test result(s), EKG, radiologic studies, and as a result, I will admit patient. Consideration of Admission/Observation Patient was admitted/placed on observation. Management of patient was discussed with the following: Hospitalist: Sonny on behalf of Dr Michel. Independent interpretation of the following test(s) in the Emergency Department EKG: See my EKG interpretation above CT Scan: My interpretation is CT head without IV contrast images reviewed by me do not reveal intracranial hemorrhage. Counseling: I had a detailed discussion with the patient and/or guardian regarding the historical points, exam findings, and any diagnostic results supporting the discharge/admit diagnosis, lab results, radiology results, the need for further work-up and treatment in the hospital. ED course: Discussed necessity for admission with patient's multiple episodes of left hand numbness. Patient stated she also had period of difficulty speaking.. 12/19 14:54 Order name: Basic Metabolic Panel; Complete Time: 15:50 ms3 12/19 14:54 Order name: CBC with Diff; Complete Time: 15:37 ms3 12/19 14:54 Order name: High Sensitivity Troponin; Complete Time: 15:50 ms3 12/19 14:54 Order name: Protime (+inr); Complete Time: 15:37 ms3 12/19 14:54 Order name: Ptt, Activated; Complete Time: 15:37 ms3 12/19 15:16 Order name: Glucose, Ancillary Testing; Complete Time: 15:37 EDMS 12/19 15:22 Order name: CREATININE WHOLE BLOOD; Complete Time: 15:37 EDMS 12/19 17:10 Order name: Basic Metabolic Panel EDMS 12/19 17:10 Order name: Basic Metabolic Panel EDMS 12/19 17:10 Order name: CBC with Automated Diff EDMS 12/19 17:10 Order name: CBC with Automated Diff EDMS 12/19 17:10 Order name: Lipid Profile EDMS 12/19 17:10 Order name: Lipid Profile EDMS 12/19 17:10 Order name: Thyroid Stimulating Hormone EDMS 12/19 17:11 Order name: Thyroid Stimulating Hormone EDMS 12/19 14:54 Order name: CT Head Angio; Complete Time: 16:27 ms3 12/19 14:54 Order name: CT Neck Angio; Complete Time: 16:27 ms3 12/19 14:54 Order name: CT Stroke Brain w/o Contrast; Complete Time: 15:10 ms3 12/19 14:54 Order name: Stroke CXR 1 View; Complete Time: 16:27 ms3 12/19 16:34 Order name: Brain Wo Cont EDMS 12/19 14:54 Order name: EKG; Complete Time: 14:55 ms3 12/19 17:10 Order name: Physical Therapy Consult EDMS 12/19 14:54 Order name: Accucheck; Complete Time: 15:14 ms3 12/19 14:54 Order name: Cardiac monitoring; Complete Time: 15:23 ms3 12/19 14:54 Order name: EKG - Nurse/Tech; Complete Time: 15:23 ms3 12/19 14:54 Order name: IV Saline Lock; Complete Time: 15:14 ms3 12/19 14:54 Order name: Labs collected and sent; Complete Time: 15:14 ms3 12/19 14:54 Order name: NPO; Complete Time: 15:27 ms3 12/19 14:54 Order name: O2 Per Protocol; Complete Time: 15:27 ms3 12/19 14:54 Order name: O2 Sat Monitoring; Complete Time: 15:27 ms3 12/19 14:54 Order name: Stroke Swallow Screen; Complete Time: 15:27 ms3 EC:38 Rate is 62 beats/min. Rhythm is regular. QRS [place] is Normal. [place] interval is normal. QRS ms3 interval is normal. Clinical impression: NSR w/ Non-specific ST/T Changes. Interpreted by me. Reviewed by me. Administered Medications: No medications were administered Point of Care Testing: Blood Glucose: 15:14 Blood Glucose: 127 mg/dL; dd2 Ranges: Critical Glucose Levels:Adult <50 mg/dl or >400 mg/dl <40 mg/dl or >180 mg/dl Disposition Summary: 12/19/24 16:30 Hospitalization Ordered Notes: Hospitalization Status: Observation ms3 Provider: Shyanne Michel ms3 Location: Telemetry/MedSurg (observation) ms3 Condition: Stable ms3 Problem: new ms3 Symptoms: are unchanged ms3 Bed/Room Type: Standard ms3 Room Assignment: 225(12/19/24 18:37) ss Diagnosis - Transient cerebral ischemic attack, unspecified ms3 - Left facial numbness ms3 - Left hand numbness ms3 Forms: - Medication Reconciliation Form ms3 - SBAR form ms3 - Leadership Thank You Letter ms3 NIH Stroke Scale - NIH Stroke Score Date: 12/19/2024 Time: 14:55 Total Score = 0 10. Dysarthria (speech clarity - read or repeat words) - 0(Normal) 11. Extinction and Inattention (visual/tactile/auditory/spatial/personal) - 0(No abnormality) 1a. Level of Consciousness (LOC) - 0(Alert) 1b. Level of Consciousness (LOC) (Month \T\ Age) - 0(Both) 1c. LOC Commands (Open \T\ Closes Eyes/Welt Beater) - 0(Both) 2. Best Gaze (Lateral Gaze Paresis) - 0(Normal) 3. Visual Field Loss - 0(No visual loss) 4. Facial Palsy - 0(Normal) 5a. Left Arm: Motor (10-second hold) - 0(No drift) 5b. Right Arm: Motor (10-second hold) - 0(No drift) 6a. Left Leg: Motor (5-second hold - always test supine) - 0(No drift) 6b. Right Leg: Motor (5-second hold - always test supine) - 0(No drift) 7. Limb Ataxia (finger/nose \T\ heel/collado - test with eyes open) - 0(Absent) 8. Sensory Loss (pinprick arms/legs/face) - 0(Normal) 9. Best Language: Aphasia (description/naming/reading) - 0(No aphasia) Initials: ms3 NIH Stroke Scale - NIH Stroke Score Date: 12/19/2024 Time: 15:10 Total Score = 0 10. Dysarthria (speech clarity - read or repeat words) - 0(Normal) 11. Extinction and Inattention (visual/tactile/auditory/spatial/personal) - 0(No abnormality) 1a. Level of Consciousness (LOC) - 0(Alert) 1b. Level of Consciousness (LOC) (Month \T\ Age) - 0(Both) 1c. LOC Commands (Open \T\ Closes Eyes/Welt Beater) - 0(Both) 2. Best Gaze (Lateral Gaze Paresis) - 0(Normal) 3. Visual Field Loss - 0(No visual loss) 4. Facial Palsy - 0(Normal) 5a. Left Arm: Motor (10-second hold) - 0(No drift) 5b. Right Arm: Motor (10-second hold) - 0(No drift) 6a. Left Leg: Motor (5-second hold - always test supine) - 0(No drift) 6b. Right Leg: Motor (5-second hold - always test supine) - 0(No drift) 7. Limb Ataxia (finger/nose \T\ heel/collado - test with eyes open) - 0(Absent) 8. Sensory Loss (pinprick arms/legs/face) - 0(Normal) 9. Best Language: Aphasia (description/naming/reading) - 0(No aphasia) Initials: jordin Signatures: Dispatcher [employer] EDMS Carmen Greer, RN RN ss Gavin Benton, DO ms3 Lisha Li RN RN mb9 RAO JENSEN RN RN dd2 Corrections: (The following items were deleted from the chart) 14:53 14:51 PSHx: None; dd2 dd2 17:13 17:11 Chest Pa And Lat (2 Views) ordered. EDMS EDMS 18:33 16:30 ms3 ss 18:37 18:33 221 ss ss
--- NOTE | 2024-12-19 16:31 | ER ---
Nurse's Notes [facility] Name: Radha Cristina Age: 79 yrs Sex: Female : 1945 Arrival Date: 12/19/2024 Time: 14:43 Bed 14 Private MD: Diagnosis: Transient cerebral ischemic attack, unspecified;Left facial numbness;Left hand numbness Presentation: 12/19 14:49 Chief complaint: Patient states: left mouth numbness and lt hand numb approx 30 mins dd2 ago but resolved. pt reports unable to speak, thick tongue on 12/12 and lt hand numb on 12/16. Coronavirus screen: At this time, the client does not indicate any symptoms associated with coronavirus-19. Ebola Screen: No symptoms or risks identified at this time. Risk Assessment: Do you want to hurt yourself or someone else? Patient reports no desire to harm self or others. Onset of symptoms was December 19, 2024 at 14:10. 14:49 Method Of Arrival: Ambulatory dd2 14:49 Acuity: SATYA 3 dd2 15:12 Initial Sepsis Screen: Does the patient meet any 2 criteria? No. Patient's initial mb9 sepsis screen is negative. Does the patient have a suspected source of infection? No. Patient's initial sepsis screen is negative. Triage Assessment: 15:14 General: Appears in no apparent distress. uncomfortable, Behavior is calm, cooperative, dd2 appropriate for age. Pain: Denies pain. Neuro: Reports numbness in left hand and mouth. Historical: - Allergies: 14:51 Benadryl; unable to urinate; dd2 14:51 Diltiazem; dd2 14:51 Lisinopril; dd2 14:51 unknown antibiotic; dd2 - PMHx: 14:51 Atrial fibrillation; Hypercholesterolemia; SVT; dd2 14:52 Hypertensive disorder; dd2 - PSHx: 14:53 Appendectomy; dd2 - Immunization history:: Adult Immunizations up to date. - Infectious Disease History:: Denies. - Social history:: Smoking status: Patient denies any tobacco usage or history of. Screenin:11 [facility] ED Fall Risk Assessment (Adult) History of falling in the last 3 months, mb9 including since admission No falls in past 3 months (0 pts) Confusion or Disorientation No (0 pts) Intoxicated or Sedated No (0 pts) Impaired Gait No (0 pts) Mobility Assist Device Used No (0 pt) Altered Elimination No (0 pt) Score/Fall Risk Level 0 - 2 = Low Risk Oriented to surroundings, Maintained a safe environment, Educated pt \T\ family on fall prevention, incl call for assistance when getting out of bed. Abuse screen: Denies threats or abuse. Nutritional screening: No deficits noted. Tuberculosis screening: No symptoms or risk factors identified. 15:18 [facility] Protocol Brief Cognitive Screen What is your name? Normal, Where are you mb9 right now? Normal, What year is it? Normal. Oral Mechanism Examination Facial Symmetry: Normal, Motion: Normal, Lip Closure: Normal, Oral Mechanism Result: Normal. 3 oz Water Swallow Challenge: Pt able to drink all water without stopping, coughing, choking or throat clearing: Yes Result: PASS. Assessment: 15:10 Reassessment: Assumed care of pt at this time. Pt stated around 1410, she started mb9 having numbness of her mouth and left hand while sitting at work. Pt states she is on Eliquis at this time. Pt currently denies numbness/tingling/CP/SOB. Pt AAOX4, airway intact, respirations even and unlabored. 15:10 General: Appears in no apparent distress. Behavior is calm, cooperative. Pain: Denies mb9 pain. Neuro: Musa Agitation-Sedation Scale (RASS): 0 - Alert and Calm Level of Consciousness is awake, alert, obeys commands, Oriented to person, place, time, situation, Appropriate for age Insulation Worker Furnace Installer are equal bilaterally Moves all extremities. Gait is steady, Speech is normal, Facial symmetry appears normal, Pupils are PERRLA, Intact. 15:10 Cardiovascular: Heart tones S1 S2 present Patient's skin is warm and dry. Respiratory: mb9 Airway is patent Respiratory effort is even, unlabored, Respiratory pattern is regular, symmetrical, Breath sounds are clear bilaterally. GI: No signs and/or symptoms were reported involving the gastrointestinal system. : No signs and/or symptoms were reported regarding the genitourinary system. Derm: Skin is pink, warm \T\ dry. Musculoskeletal: Range of motion: intact in all extremities. 16:10 Reassessment: No changes from previously documented assessment. Patient and/or family mb9 updated on plan of care and expected duration. Pain level reassessed. Patient is alert, oriented x 3, equal unlabored respirations, skin warm/dry/pink. 17:10 Reassessment: Patient appears in no apparent distress at this time. No changes from mb9 previously documented assessment. Patient and/or family updated on plan of care and expected duration. Pain level reassessed. Patient is alert, oriented x 3, equal unlabored respirations, skin warm/dry/pink. 19:00 Reassessment: Received report from EMILY Vallejo. cc6 19:00 General: Appears in no apparent distress. comfortable, Behavior is calm, cooperative. cc6 Pain: Denies pain. Neuro: Level of Consciousness is awake, alert, obeys commands, Oriented to person, place, time, situation, Appropriate for age. Cardiovascular: Patient's skin is warm and dry. Respiratory: Airway is patent Respiratory effort is even, unlabored, Respiratory pattern is regular, symmetrical. GI: No signs and/or symptoms were reported involving the gastrointestinal system. : No signs and/or symptoms were reported regarding the genitourinary system. EENT: No signs and/or symptoms were reported regarding the EENT system. Derm: No signs and/or symptoms reported regarding the dermatologic system. Musculoskeletal: Circulation, motion, and sensation intact. Range of motion: intact in all extremities. Vital Signs: 15:10 BP 161 / 84; Pulse 55; Resp 18; Temp 98; Pulse Ox 100% ; Weight 117.93 kg (M); Height 5 mb9 ft. 4 in. ; Pain 0/10; 15:40 BP 166 / 73; Pulse 55; Resp 18; Pulse Ox 100% ; mb9 16:10 BP 171 / 71; Pulse 54; Resp 18; Pulse Ox 100% on R/A; mb9 17:40 BP 173 / 84; Pulse 54; Resp 18; Pulse Ox 98% on R/A; mb9 19:01 BP 155 / 99; Pulse 52; Resp 18; Pulse Ox 100% on R/A; mb9 15:10 Body Mass Index 44.63 (117.93 kg, 162.56 cm) mb9 15:10 Pain Scale: Adult mb9 NIH Stroke Scale Scores: 14:55 NIHSS Score: 0 ms3 15:10 NIHSS Score: 0 mb9 ED Course: 14:48 Patient arrived in ED. dd2 14:50 Triage completed. dd2 14:52 Gavin Benton DO is Attending Physician. kb 15:00 Arm band placed on. mb9 15:01 CT Stroke Brain w/o Contrast In Process Unspecified. EDMS 15:10 CT Head Angio In Process Unspecified. EDMS 15:10 CT Neck Angio In Process Unspecified. EDMS 15:11 Lisha Li, RN is Primary Nurse. mb9 15:13 Placed in gown. Bed in low position. Call light in reach. Side rails up X 1. Provided mb9 Education on: press call light if needing anything. Client placed on continuous cardiac and pulse oximetry monitoring. NIBP monitoring applied. security guards dispatcher on. 15:13 Initial lab(s) drawn, by me, sent to lab. Inserted saline lock: 20 gauge in right mb9 antecubital area, using aseptic technique. Blood collected. Flushed with 10 mL NS. 15:13 EKG done, by ED staff, reviewed by Gavin Benton DO. mb9 15:20 Stroke CXR 1 View In Process Unspecified. EDMS 15:23 EKG done, by pile driving technician. reviewed by Gavin Benton DO. ts3 15:24 No provider procedures requiring assistance completed. mb9 15:26 Door closed. Noise minimized. Warm blanket given. Pillow given. One-on-one care X 15 mb9 minutes. 16:29 Shyanne Michel MD is Hospitalizing Provider. ms3 20:15 Patient admitted, IV remains in place. vc1 Administered Medications: No medications were administered Medication: 15:27 VIS not applicable for this client. mb9 Point of Care Testing: Blood Glucose: 15:14 Blood Glucose: 127 mg/dL; dd2 Ranges: Outcome: 16:30 Decision to Hospitalize by Provider. ms3 20:15 Admitted to Med/surg accompanied by tech, via wheelchair, room 225, vc1 20:15 Condition: stable 20:15 Instructed on the need for admit, 20:15 Patient left the ED. vc1 NIH Stroke Scale - NIH Stroke Score Date: 12/19/2024 Time: 14:55 Total Score = 0 10. Dysarthria (speech clarity - read or repeat words) - 0(Normal) 11. Extinction and Inattention (visual/tactile/auditory/spatial/personal) - 0(No abnormality) 1a. Level of Consciousness (LOC) - 0(Alert) 1b. Level of Consciousness (LOC) (Month \T\ Age) - 0(Both) 1c. LOC Commands (Open \T\ Closes Eyes/Cable Dispatcher) - 0(Both) 2. Best Gaze (Lateral Gaze Paresis) - 0(Normal) 3. Visual Field Loss - 0(No visual loss) 4. Facial Palsy - 0(Normal) 5a. Left Arm: Motor (10-second hold) - 0(No drift) 5b. Right Arm: Motor (10-second hold) - 0(No drift) 6a. Left Leg: Motor (5-second hold - always test supine) - 0(No drift) 6b. Right Leg: Motor (5-second hold - always test supine) - 0(No drift) 7. Limb Ataxia (finger/nose \T\ heel/collado - test with eyes open) - 0(Absent) 8. Sensory Loss (pinprick arms/legs/face) - 0(Normal) 9. Best Language: Aphasia (description/naming/reading) - 0(No aphasia) Initials: ms3 NIH Stroke Scale - NIH Stroke Score Date: 12/19/2024 Time: 15:10 Total Score = 0 10. Dysarthria (speech clarity - read or repeat words) - 0(Normal) 11. Extinction and Inattention (visual/tactile/auditory/spatial/personal) - 0(No abnormality) 1a. Level of Consciousness (LOC) - 0(Alert) 1b. Level of Consciousness (LOC) (Month \T\ Age) - 0(Both) 1c. LOC Commands (Open \T\ Closes Eyes/Cable Dispatcher) - 0(Both) 2. Best Gaze (Lateral Gaze Paresis) - 0(Normal) 3. Visual Field Loss - 0(No visual loss) 4. Facial Palsy - 0(Normal) 5a. Left Arm: Motor (10-second hold) - 0(No drift) 5b. Right Arm: Motor (10-second hold) - 0(No drift) 6a. Left Leg: Motor (5-second hold - always test supine) - 0(No drift) 6b. Right Leg: Motor (5-second hold - always test supine) - 0(No drift) 7. Limb Ataxia (finger/nose \T\ heel/collado - test with eyes open) - 0(Absent) 8. Sensory Loss (pinprick arms/legs/face) - 0(Normal) 9. Best Language: Aphasia (description/naming/reading) - 0(No aphasia) Initials: mb9 Signatures: Dispatcher [employer] EDMS Kasey Bailey, CATALOG SPECIALIST-C CATALOG SPECIALIST-Ckb Gavin Benton, DO ms3 Corrine Khan RN RN vc1 Lisha Li RN RN mb9 Marleen Swift RN RN cc6 RAO JENSEN RN RN dd2 Kenna Carter ts3 Corrections: (The following items were deleted from the chart) 14:53 14:51 PSHx: None; dd2 dd2 15:24 15:13 Inserted saline lock: 20 gauge in left antecubital area, using aseptic mb9 technique. Blood collected. Flushed with 10 mL NS mb9 15:25 15:10 Pulse 55bpm; Resp 18bpm; Pulse Ox 100%; Temp 98F; mb9 mb9 20:34 20:32 Patient left the ED. vc1 vc1
[2024-12-19] MEDS ORDERED: ACETAMINOPHEN 500 MG TAB PO PRN (17:06)
--- NOTE | 2024-12-19 17:06 | P.HP ---
Certification for Inpatient Patient admitted to: Observation With expected LOS: <2 Midnights Patient will require the following post-hospital care: None Practitioner: I am a practitioner with admitting privileges, knowledge of patient current condition, hospital course, and medical plan of care. Services: Services provided to patient in accordance with Admission requirements found in Title 42 Section 412.3 of the Code of Federal Regulations <AnaSonny cardoza Jatinder Calix - Last Filed: 12/19/24 17:03> Patient History Date of Service: 12/19/24 Reason for admission: TIA History of Present Illness: 79-year-old female with history of atrial fibrillation on chronic anticoagulation, hypertension, hyperlipidemia presents emergency department chief complaint of left facial numbness, left upper extremity numbness/weakness. She reports multiple episodes over the course of the last 1 year with episodes of difficulty with her speech/finding her words lasting for few minutes at a time. At this time patient is back to her baseline with NIH score of 0. CT head without contrast was negative for acute findings, CTA of the head neck were negative for LVO or other stenosis. Patient has been compliant with her Eliquis which she takes twice daily, does have a history of reported small stroke in the past. Patient was admitted under observation and received MRI during hospitalization. - Past Medical/Surgical History -: A-fib -: Hypertension -: Hyperlipidemia Psychosocial/ Personal History: Lives at home with family - Social History Smoking Status: Never smoker Alcohol use: No CD- Drugs: No Caffeine use: Yes Place of Residence: Home <Sonny Perez - Last Filed: 12/19/24 17:03> Date of Service: 12/19/24 <Shyanne Michel - Last Filed: 12/24/24 12:38> Review of Systems 10-point ROS is otherwise unremarkable Neurological: Other (Left arm numbness, left facial numbnessresolved) <Sonny Perez - Last Filed: 12/19/24 17:03> Physical Examination - Physical Exam General: Alert, In no apparent distress, Oriented x3 HEENT: Atraumatic, PERRLA, EOMI Neck: Supple, 2+ carotid pulse no bruit, No LAD Respiratory: Clear to auscultation bilaterally, Normal air movement Cardiovascular: Regular rate/rhythm, Normal S1 S2 Gastrointestinal: Normal bowel sounds, No tenderness Musculoskeletal: No tenderness Integumentary: No rashes Neurological: Normal speech, Normal strength at 5/5 x4 extr, Other (NIH score is 0) - Studies Laboratory Data (last 24 hrs) 12/19/24 12/19/24 12/19/24 15:04 15:04 15:04 WBC 6.30 Hgb 14.0 Hct 42.7 Plt Count 165 PT 14.7 H INR 1.31 APTT 33.3 Sodium 139 Potassium 4.2 BUN 19 H Creatinine 0.98 Glucose 134 H <Sonny Perez - Last Filed: 12/19/24 17:03> Assessment and Plan - Plan Assessment: Left facial/upper extremity paresthesias rule out CVA/TIA Atrial fibrillation on chronic anticoagulation Hypertension Hyperlipidemia Asthma Plan: Left facial/upper extremity paresthesias rule out CVA/TIA CT head without contrast negative for acute findings CTA head and neck negative for LVO Symptoms resolved, patient not a candidate for TNK given anticoagulation Allow for permissive hypertension tonight, obtain MRI Neurology consultation Atrial fibrillation on chronic anticoagulation Continue atenolol, Eliquis monitor on telemetry Hypertension Hyperlipidemia Asthma Resume home medications Reports she needs a refill on her Wixela at discharge DVT PPX: Eliquis Code status: Full code Discharge Plan: Home Plan to discharge in: 24 Hours - Advance Directives Does patient have a Living Will: No Does patient have a Durable POA for Healthcare: No - Code Status/Comfort Care Code Status Assessed: Yes (Full code) Critical Care: No Time Spent Managing Pts Care (In Minutes): 65 <Sonny Perez - Last Filed: 12/19/24 17:03> Date of Service: 12/19/24 Patient was seen and examined. Events of the last 24 hours have been noted. Spoke with with EDEL regarding patient's clinical picture after evaluating and examining the patient independently. I performed a substantial part of the MDM during this patient's care today. I personally made or approved the documented management plan and acknowledge its risk of complications. I agree with the findings and documentation provided in the EDEL's notes. <Shyanne Michel - Last Filed: 12/24/24 12:38>
--- NOTE | 2024-12-19 19:35 | RAD REPORT ---
EXAMINATION: MRI BRAIN WITHOUT CONTRAST CLINICAL INDICATION: Female, 79 years old.[facility] MAIN N right hand numbness/facial TECHNIQUE: Multiplanar multisequence MR images of the brain were obtained without intravenous contras t. Unless otherwise specified, incidental findings do not require dedicated imaging follow-up. COMPARISON: Noncontrast head CT and CT angiogram of the same day FINDINGS: INTRACRANIAL: Midline structures are unremarkable. Diffusion-weighted images show no acute or early subacute infarction. Bilateral centrum semiovale and high right frontal subcortical T2/FLAIR hyperintensity approximating fluid signal intensity with a single right centrum semiovale vacuolated focus with adjacent gliosis. These demonstrate T2 shine through on the ADC maps. These may relate to remote small infarcts. There is mild brain atrophy with other mild T2/FLAIR hyperintensities in th e periventricular and deep white matter regions, likely representing chronic microvascular ischemic changes. There is no mass effect or midline shift. No abnormal extraaxial fluid collection. VASCULATURE: Normal signal voids in the larger intracranial arteries and dural venous sinuses. SINUSES: The paranasal sinuses and mastoid air cells are predominantly clear. BONE: The marrow signal pattern is within normal limits. IMPRESSION: No significant intracranial abnormalities. Chronic findings including multiple white matter signal ab normalities, suggestive of small remote infarcts or chronic small vessel ischemic changes.
[2024-12-19] MEDS: APIXABAN 5 MG TABLET PO SCH (20:42)
[2024-12-19] MEDS: EZETIMIBE 10 MG TAB PO SCH (20:42)
[2024-12-19 20:47] VITALS: O2SAT 100
[2024-12-19 21:54] VITALS: BMI 44.4
[2024-12-20 05:49] LABS: Absolute Lymphocytes (CBC) 1.6 K/uL (0.7-4.9); Hematocrit 38.4 % (36.0-45.0); Hemoglobin 12.9 g/dL (12.0-15.0); MCH 32.0 pg (27.0-35.0); MCHC 33.7 g/dL (32.0-36.0); MCV 95.0 fL (80-100); MPV 9.2 fL (7.6-11.3); Nucleated RBC Absolute Count 0.0 (0-0); Nucleated Red Blood Cells % 0.0 % (0-0); RBC Red Blood Cell Count 4.05 M/uL (3.86-4.86); White Blood Count 5.90 thou/uL (4.3-10.9)
[2024-12-20 06:16] LABS: Anion Gap 10.0 mEq/L (5.0-15.0); BUN Blood Urea Nitrogen 14.0 mg/dL (7-18); Glucose Level 116.0 mg/dL (74-106); HDL Cholesterol 52.0 mg/dL (40-60); LDL Cholesterol, Calculated 94.0 mg/dL (<130); LDL Cholesterol,Calc NonReport 94.0; Potassium 4.0 mEq/L (3.5-5.1); Thyroid Stimulating Hormone 2.01 uIU/mL (0.358-3.740)
[2024-12-20 09:11] VITALS: BP 172/80; TEMP 97.7
[2024-12-20] MEDS: LOSARTAN POTASSIUM 50 MG TABLET PO ONE (10:21)
[2024-12-20] MEDS ORDERED: APIXABAN 5 MG TABLET PO SCH (21:00)
[2024-12-20] MEDS ORDERED: LOSARTAN POTASSIUM 50 MG TABLET PO SCH (21:00)
[2024-12-20] MEDS ORDERED: EZETIMIBE 10 MG TAB PO SCH (21:00)
--- NOTE | 2024-12-20 23:56 | CON ---
Reason For Consultation: Consultation called because of TIA versus possible seizures. History Of Present Illness: Ms. Cristina is a 79-year-old patient with atrial fibrillation, on anticoag ulation, hypertension, dyslipidemia, who developed a sudden-onset left facial and left upper extremit y numbness with mild weakness. The episode lasted perhaps 5 minutes or less. However, she has had m ultiple similar episodes over the last year, some episodes associated with difficulty finding words a nd thoughts and again lasting a few minutes. At the time she arrived to emergency room, she is back to baseline. NIH Stroke Scale is 0. CT scan of the head showed no acute ischemic hemorrhagic change s. CT angiogram of the neck showed no large vessel occlusion or significant stenosis. She reports c ompliance with Eliquis for atrial fibrillation 5 mg twice daily. Since hospitalization, she has not had a recurrent episode. Her brain MRI which was actually done yesterday showed no significant scan abnormalities and chronic findings consistent with multiple white matter signal abnormalities and [place] small remote infarcts versus chronic small vessel ischemic disease. Her laboratory studies show ed essentially unremarkable complete blood count with differential. INR 1.31 and her basic metabolic panel essentially unremarkable as well. Blood glucose ranged from 116 to 134, calcium 8.5. Her LDL cholesterol was 94, HDL 52, cholesterol HDL ratio 2.06. TSH 2.010. Sodium 101, potassium 4.0, chlo ride 108, carbon dioxide 27, BUN 14, and creatinine 0.91. Past Medical History: As noted. Social History: No alcohol, tobacco, or IV drug use. Lives in a single-family home. Allergies: DILTIAZEM, DIPHENHYDRAMINE, AND LISINOPRIL. Current Medications: Tylenol 500 mg every 4 hours as needed, Eliquis 5 mg twice daily, atenolol 25 m g daily, Zetia 10 mg at bedtime, Cozaar 50 mg daily. Family History: Noncontributory. Social History: No alcohol, tobacco, or IV drug use. Review of Systems: No fevers, chills, nausea, vomiting, myalgias, arthralgias. She reports numbness as noted. Physical Examination: Vital Signs: Blood pressure 172/80, pulse 57, respiratory rate 16 to 20, temperature 97.7, oxygen sa turation 94%. General: At the time of my evaluation, Ms. Cristina was back to her baseline, which is normal. HEENT: She is normocephalic, atraumatic. Sclerae anicteric. Oropharynx is pink and moist. Neck: Supple. Chest: Clear. Heart: Regular. Extremities: Show no clubbing, cyanosis, or edema. Neurological: She is alert and oriented to person, place, situation. Follows commands appropriately . Cranial nerves 2 through 12 are intact. Motor examination shows 5/5 strength proximally and dista lly in the upper and lower extremities. Sensation intact in upper and lower extremities. Coordinati on intact in upper and lower extremities. She has had normal gait, stance, stride, and stride length . Assessment And Plan: Ms. Cristina is a 79-year-old patient, who has had potential multiple transient is chemic attacks in the same distribution versus complex partial seizures as there is a lesser consider ation of complicated migraine. She does have risk factors for stroke including hypertension and has an elevated BMI of 44.6 with a weight of 260 pounds and height of 5 feet 4 inches. Her plan is she m ay be discharged home. She should be on aspirin 81 mg along with Plavix 75 mg daily. May use a stat in at moderate dose. Continue with management of her comorbid conditions. She was told to maintain an event diary. She should follow up in Dr. Mathews's office and may have an ambulatory video EEG m onitoring study to characterize any additional episodes or rule out intermittently abnormality sugges tive of seizures. Comorbid condition medications will be continued again including the Eliquis for atrial fibrillation, Tenormin for heart rate and blood pressure control, an d Cozaar as well. MADHU/OLIVER Voice ID: [id number] Report ID: [id number]
[2024-12-21] MEDS ORDERED: HOME MED 1 EA UNK (Fluticasone Propion/Salmeterol [Advair 250-50 Diskus] Blst.W.Dev) PO SCH (09:00)
[2024-12-21] MEDS ORDERED: LOSARTAN POTASSIUM 50 MG TABLET PO ONE (09:47)
== END 2024-12-20 12:18 | disposition home or self-care (01) ==
LOC: ER 14:43 → ERHOLD 17:06 → 2ND 18:38
PROVIDERS: ADMIT Hospitalist; ATTEND Hospitalist
DX: R20.2 Paresthesia of skin (principal); I48.11 Longstanding persistent atrial fibrillation; I10 Essential (primary) hypertension; E78.5 Hyperlipidemia, unspecified; J45.909 Unspecified asthma, uncomplicated; E78.00 Pure hypercholesterolemia, unspecified; Z68.41 Body mass index [BMI] 40.0-44.9, adult; Z88.8 Allergy status to other drugs, medicaments and biological substances; Z79.01 Long term (current) use of anticoagulants
CPT/HCPCS: 93005; 85025 ×2; 80048 ×2; 36415; 85610; 80061; 82565; 82947; 85730; 84443; 84484; 70496; 70498; 70450; 71045; 70551; 97161; 99285; Q9967; G0378 ×4